=== PATIENT | female | born 1970 | race Caucasian/White ===

== ENCOUNTER 2020-05-01 07:51 | Emergency (ER) | payer OTHER ==
[~2020-05-01] VITALS: Ht 175.3 cm; Wt 145.4 kg
[2020-05-01] MEDS ORDERED: INHALER IH (08:08)
[2020-05-01] MEDS ORDERED: LISI30TA4 PO (08:08)
[2020-05-01 09:06] LABS: RAPID GROUP A STREP NEGATIVE (NEGATIVE)
[2020-05-01 09:13] LABS: INFLUENZA TYPE A NEGATIVE FOR TYPE A (NEGATIVE); INFLUENZA TYPE B NEGATIVE FOR TYPE B (NEGATIVE)
[2020-05-01 09:18] VITALS: BP 138/82
== END 2020-05-01 09:58 | disposition home or self-care (01) ==
LOC: EMS 07:52
DX: U07.1 COVID-19 (principal); J45.909 Unspecified asthma, uncomplicated; Z88.0 Allergy status to penicillin; Z88.2 Allergy status to sulfonamides; Z91.018 Allergy to other foods
CPT/HCPCS: 71045; 81025; 87430; 87804; 99284; U0003

== ENCOUNTER 2020-05-24 07:27 | Emergency (ER) | payer OTHER ==
[~2020-05-24] VITALS: Ht 167.6 cm; Wt 145.4 kg
[~2020-05-24 07:27] MED LIST: ALBU2TAB42 PO; APIX5TAB PO; BENZ100C68 PO; INHALER IH; LISI-661 PO; LISI10TA7 PO
[2020-05-24 08:59] VITALS: BP 144/100
== END 2020-05-24 09:14 | disposition home or self-care (01) ==
LOC: EMS 07:30
DX: U07.1 COVID-19 (principal); S91.202A Unspecified open wound of left great toe with damage to nail, initial encounter; S91.201A Unspecified open wound of right great toe with damage to nail, initial encounter; S61.307A Unspecified open wound of left little finger with damage to nail, initial encounter; L08.9 Local infection of the skin and subcutaneous tissue, unspecified; J45.909 Unspecified asthma, uncomplicated; I10 Essential (primary) hypertension; Z88.0 Allergy status to penicillin; Z88.1 Allergy status to other antibiotic agents; Z91.018 Allergy to other foods; Z88.8 Allergy status to other drugs, medicaments and biological substances; W19.XXXA Unspecified fall, initial encounter; Y93.89 Activity, other specified; Y92.89 Other specified places as the place of occurrence of the external cause; Y99.8 Other external cause status
CPT/HCPCS: 71045; 99284; U0003

== ENCOUNTER 2020-06-04 07:59 | Emergency (ER) | payer OTHER ==
[~2020-06-04] VITALS: Ht 170.2 cm; Wt 118.2 kg
[~2020-06-04 07:59] MED LIST changes: -APIX5TAB PO
[2020-06-04 08:17] VITALS: BP 145/90
== END 2020-06-04 08:55 | disposition home or self-care (01) ==
LOC: EMS 08:07
DX: U07.1 COVID-19 (principal); J45.909 Unspecified asthma, uncomplicated; I10 Essential (primary) hypertension; Z88.2 Allergy status to sulfonamides; Z91.018 Allergy to other foods; Z79.899 Other long term (current) drug therapy
CPT/HCPCS: 99283; U0003

== ENCOUNTER 2020-06-28 11:30 | Emergency (ER) | payer OTHER ==
[~2020-06-28] VITALS: Ht 167.6 cm; Wt 145.4 kg
[2020-06-28 13:01] VITALS: BP 116/57
== END 2020-06-28 13:50 | disposition home or self-care (01) ==
LOC: EMS 11:32
DX: Z20.828 Contact with and (suspected) exposure to other viral communicable diseases (principal); J45.909 Unspecified asthma, uncomplicated; I10 Essential (primary) hypertension; Z88.1 Allergy status to other antibiotic agents; Z88.0 Allergy status to penicillin; Z88.8 Allergy status to other drugs, medicaments and biological substances; Z91.018 Allergy to other foods; Z79.899 Other long term (current) drug therapy
CPT/HCPCS: 87426; 99283; U0003

== ENCOUNTER 2023-03-26 16:28 | Emergency (ER) | payer OTHER ==
[~2023-03-26] VITALS: Ht 170.2 cm; Wt 132.7 kg
[~2023-03-26 16:28] MED LIST changes: +ALBU2 PO; -ALBU2TAB42 PO; -LISI-661 PO; +LISI10TA24 PO; -LISI10TA7 PO
[2023-03-26] MEDS ORDERED: MONT-40 PO (16:32)
[2023-03-26] MEDS ORDERED: BUDE10.26 PO (16:32)
[2023-03-26] MEDS ORDERED: LORA10TA7 PO (16:32)
[2023-03-26] MEDS ORDERED: CARV6.2534 PO (16:32)
[2023-03-26] MEDS ORDERED: AMLO5TAB66 PO (16:32)
[2023-03-26] MEDS ORDERED: CHOL200074 PO (16:32)
[2023-03-26] MEDS ORDERED: LISI40TA9 PO (16:32)
[2023-03-26] MEDS ORDERED: ROSU10TA72 PO (16:32)
[2023-03-26] MEDS ORDERED: IBUPROFEN 600 MG TABLET PO ONE (18:15)
[2023-03-26 18:46] VITALS: BP 148/92
== END 2023-03-26 20:26 | disposition home or self-care (01) ==
LOC: EMS 16:31
DX: S69.91XA Unspecified injury of right wrist, hand and finger(s), initial encounter (principal); J45.909 Unspecified asthma, uncomplicated; E78.00 Pure hypercholesterolemia, unspecified; I10 Essential (primary) hypertension; Z79.899 Other long term (current) drug therapy; Z88.0 Allergy status to penicillin; Z88.1 Allergy status to other antibiotic agents; Z91.018 Allergy to other foods; W01.0XXA Fall on same level from slipping, tripping and stumbling without subsequent striking against object, initial encounter; Y93.89 Activity, other specified; Y92.89 Other specified places as the place of occurrence of the external cause; Y99.8 Other external cause status
CPT/HCPCS: 99283

== ENCOUNTER 2024-02-11 13:34 | Emergency (ER) | payer OTHER ==
[~2024-02-11] VITALS: Ht 170.2 cm; Wt 136.4 kg
[~2024-02-11 13:34] MED LIST changes: -ALBU2 PO; +AMLO5TAB66 PO; -BENZ100C68 PO; +CARV6.2534 PO; +CHOL200074 PO; +FLUC150T61 PO; -INHALER IH; +LATA2.5D14 OU; -LISI10TA24 PO; +LISI40TA9 PO; +MONT-40 PO; +NAPR-1025 PO; +NITR-75 PO; +ROSU5TAB PO
[2024-02-11] MEDS: ACETAMINOPHEN 500 MG TABLET PO ONE (15:31)
[2024-02-11 15:51] VITALS: TEMP 98.2
[2024-02-11 17:19] VITALS: BP 114/84; PULSE 88; RESP 16
== END 2024-02-11 17:27 | disposition home or self-care (01) ==
LOC: EMS 13:34
DX: S79.911A Unspecified injury of right hip, initial encounter (principal); X58.XXXA Exposure to other specified factors, initial encounter; Y99.8 Other external cause status; E78.00 Pure hypercholesterolemia, unspecified; I10 Essential (primary) hypertension; J45.909 Unspecified asthma, uncomplicated; Y93.89 Activity, other specified; Y92.89 Other specified places as the place of occurrence of the external cause
CPT/HCPCS: 70450; 73502; 99284

== ENCOUNTER 2024-03-24 12:33 | Emergency (ER) | payer OTHER ==
[~2024-03-24] VITALS: Ht 165.1 cm; Wt 159.1 kg
[2024-03-24 12:36] VITALS: BP 130/80; PULSE 85; RESP 18; TEMP 98
[2024-03-24] MEDS ORDERED: FLUC150T61 PO (13:33)
[2024-03-24] MEDS ORDERED: MICO45CR16 VG (13:33)
== END 2024-03-24 14:11 | disposition home or self-care (01) ==
LOC: EMS 12:33
DX: B37.31 Acute candidiasis of vulva and vagina (principal); I10 Essential (primary) hypertension; E78.00 Pure hypercholesterolemia, unspecified; J45.909 Unspecified asthma, uncomplicated; Z88.0 Allergy status to penicillin; Z88.2 Allergy status to sulfonamides
CPT/HCPCS: 99281; Z7502

== ENCOUNTER 2024-05-27 20:33 | Emergency (ER) | payer OTHER ==
[~2024-05-27] VITALS: Ht 172.7 cm; Wt 150.0 kg
[~2024-05-27 20:33] MED LIST changes: +MICO45CR16 VG
[2024-05-27 20:44] VITALS: BP 125/77; PULSE 80; RESP 20; TEMP 98.2
[2024-05-27] MEDS: CARBAMIDE PEROXIDE 6.5% 15 ML OTIC SOLUTION AU ONE (23:58)
== END 2024-05-28 02:10 | disposition home or self-care (01) ==
LOC: EMS 20:33
DX: H61.22 Impacted cerumen, left ear (principal); J45.909 Unspecified asthma, uncomplicated; I10 Essential (primary) hypertension; Z88.0 Allergy status to penicillin; Z88.2 Allergy status to sulfonamides
CPT/HCPCS: 69209; 99282; Z7502; Z7610